=== PATIENT | female | born 1950 | race Caucasian/White ===

== ENCOUNTER → 2017-12-16 | Outpatient (CLI) | payer OTHER, MEDICARE ==
[~2017-12-16] MED LIST: ACETAMINOPHEN325 M1 PO; ALBUTEROL; COZAAR100 MG PO; FOSAMAX40 MG PO; LEVAQUIN 500 M500 M2 PO; MAXIDE; MUCINEX600 MG PO; POTASSIUM20 PO; PREDNISONE 10 M10 M1; TESSALON200 MG PO
[2017-12-16 05:33] LABS: ABSOLUTE BASOPHILS 0.1 thou/uL (0.0-0.2); ABSOLUTE EOSINOPHILS 0.2 thou/uL (0.0-0.7); ABSOLUTE LYMPHOCYTES 4.5 thou/uL (0.8-5.3); ABSOLUTE MONOCYTES 0.9 thou/uL (0.0-1.2); ABSOLUTE NEUTROPHILS 5.9 thou/uL (1.6-8.1); BASOPHILS 0.7 %; EOSINOPHILS 1.8 %; HEMATOCRIT 39.8 % (37.0-47.0); HEMOGLOBIN 13.1 gm/dL (12.0-15.0); LYMPHOCYTES 38.7 %; MCH 28.5 pg (26.0-34.0); MCV 86.4 fL (80.0-100.0); MONOCYTES 8.1 %; MPV 7.3 fl. (7.2-11.1); NUCLEATED RBCS 0 /100WBC; PLATELET COUNT* 291 thou/uL (150-400); POLYS 50.7 %; RDW-CV 14.1 % (10.5-14.5); WBC 11.7 thou/uL (4.0-11.0)
[2017-12-16 05:49] LABS: ALBUMIN 3.9 g/dL (3.4-5.0); ALKALINE PHOSPHATASE 76 U/L (46-116); ANION GAP 9 mmol/L (7-16); BUN 20 mg/dL (7-18); CALCIUM 9.2 mg/dL (8.5-10.1); CHLORIDE 103 mmol/L (98-107); CHOLESTEROL 194 mg/dL (<200); CO2 30 mmol/L (21-32); CREATININE 0.9 mg/dL (0.6-1.3); GLUCOSE 96 mg/dL (70-99); HDL CHOLESTEROL 79 mg/dL (>40); LDL CHOLESTEROL 101 mg/dL (<100); POTASSIUM 3.9 mmol/L (3.5-5.1); SGOT 17 U/L (15-37); SGPT 26 U/L (30-65); SODIUM 142 mmol/L (136-145); TC:HDL 2.5 Ratio (Not establshd); TOTAL BILIRUBIN 0.4 mg/dL (<0.1-1.0); TOTAL PROTEIN 7.5 g/dL (6.4-8.2); TRIGLYCERIDE 74 mg/dL (<150); VLDL 15 mg/dL (<40)
[2017-12-16 05:51] LABS: SERUM ASSESSMENT Clear
[2017-12-16 19:12] LABS: GLYCOHEMOGLOBIN (HGB A1C) 5.1 % (4.8-5.6)
== END ==
LOC: M.LAB 02:47
PROVIDERS: Internal Medicine Endocrinology, Diabetes & Metabolism
DX: E78.2 Mixed hyperlipidemia (principal); M85.80 Other specified disorders of bone density and structure, unspecified site; R73.01 Impaired fasting glucose

== ENCOUNTER → 2017-12-24 | Outpatient (CLI) | payer OTHER, MEDICARE | LOC: M.RAD 15:30 | DX: M85.80 Other specified disorders of bone density and structure, unspecified site (principal); E78.2 Mixed hyperlipidemia; Z78.0 Asymptomatic menopausal state ==

== ENCOUNTER → 2018-10-13 | Outpatient (CLI) | payer OTHER, MEDICARE | LOC: M.RAD 05:59 | DX: Z12.31 Encounter for screening mammogram for malignant neoplasm of breast (principal) ==

== ENCOUNTER → 2019-02-26 | Outpatient (CLI) | payer OTHER, MEDICARE ==
[2019-02-26 14:00] LABS: HEMOGLOBIN 14.2 gm/dL (12.0-15.0); MCH 27.9 pg (26.0-34.0); MCHC 32.9 g/dL (28.0-37.0); MCV 84.8 fL (80.0-100.0); MPV 7.8 fl. (7.2-11.1); RBC 5.07 mil/uL (4.20-5.00); RDW-CV 14.1 % (10.5-14.5); WBC 8.4 thou/uL (4.0-11.0)
[2019-02-26 14:15] LABS: ALBUMIN 3.8 g/dL (3.4-5.0); ALKALINE PHOSPHATASE 82 U/L (46-116); ANION GAP 9 mmol/L (7-16); BUN 19 mg/dL (7-18); CALCIUM 9.6 mg/dL (8.5-10.1); CHLORIDE 103 mmol/L (98-107); CO2 30 mmol/L (21-32); CREATININE 0.8 mg/dL (0.6-1.3); GLUCOSE 94 mg/dL (70-99); POTASSIUM 4.1 mmol/L (3.5-5.1); SGOT 14 U/L (15-37); SGPT 23 U/L (30-65); SODIUM 142 mmol/L (136-145); TOTAL BILIRUBIN 0.3 mg/dL (<0.1-1.0); TOTAL PROTEIN 7.8 g/dL (6.4-8.2)
[2019-02-26 16:53] LABS: CHOLESTEROL 209 mg/dL (<200); HDL CHOLESTEROL 68 mg/dL (>40); LDL CHOLESTEROL 125 mg/dL (<100); TC:HDL 3.1 Ratio (Not establshd); TRIGLYCERIDE 82 mg/dL (<150); VLDL 16 mg/dL (<40)
[2019-02-26 16:54] LABS: SERUM ASSESSMENT Clear
[2019-02-27 05:09] LABS: GLYCOHEMOGLOBIN (HGB A1C) 5.6 % (4.8-5.6)
== END ==
LOC: M.LAB 13:39
PROVIDERS: Family Medicine
DX: Z00.01 Encounter for general adult medical examination with abnormal findings (principal); I10 Essential (primary) hypertension; K21.9 Gastro-esophageal reflux disease without esophagitis; M89.9 Disorder of bone, unspecified; M15.9 Polyosteoarthritis, unspecified; Z68.28 Body mass index [BMI] 28.0-28.9, adult

== ENCOUNTER → 2020-01-03 | Outpatient (CLI) | payer MEDICARE, OTHER | LOC: M.RAD 14:39 | DX: Z12.31 Encounter for screening mammogram for malignant neoplasm of breast (principal) ==

== ENCOUNTER 2020-04-25 12:02 | Emergency (ER) | payer MEDICARE, OTHER ==
[~2020-04-25] VITALS: Ht 157.5 cm; Wt 81.7 kg
[2020-04-25 12:14] VITALS: BP 150/61
[2020-04-25] MEDS ORDERED: TOPROL XL25 MG PO (12:15)
[2020-04-25] MEDS ORDERED: NORCO 5-325 TA1 EAC1 PO (13:05)
== END 2020-04-25 13:23 | disposition home or self-care (01) ==
LOC: M.ERS 12:02
DX: S63.8X2A Sprain of other part of left wrist and hand, initial encounter (principal); I10 Essential (primary) hypertension; E78.5 Hyperlipidemia, unspecified; M19.90 Unspecified osteoarthritis, unspecified site; Z90.49 Acquired absence of other specified parts of digestive tract; Z90.12 Acquired absence of left breast and nipple; Z88.1 Allergy status to other antibiotic agents; Z88.2 Allergy status to sulfonamides; W01.0XXA Fall on same level from slipping, tripping and stumbling without subsequent striking against object, initial encounter; Y93.89 Activity, other specified; Y92.89 Other specified places as the place of occurrence of the external cause; Y99.8 Other external cause status

== ENCOUNTER → 2021-03-08 | Outpatient (CLI) | payer MEDICARE ==
[~2021-03-08] MED LIST changes: +NORCO 5-325 TA1 EAC1 PO; +TOPROL XL25 MG PO
== END ==
LOC: M.RAD 13:00
PROVIDERS: ATTEND Internal Medicine Endocrinology, Diabetes & Metabolism
DX: Z12.31 Encounter for screening mammogram for malignant neoplasm of breast (principal)